=== PATIENT | male | born 1950 | race Caucasian/White ===

== ENCOUNTER 2022-05-30 17:30 | Inpatient (IN) | payer MEDICARE ==
[~2022-05-30] VITALS: Ht 177.8 cm; Wt 113.6 kg
[2022-05-30] MEDS ORDERED: ASPI81CH33 PO (17:47)
[2022-05-30] MEDS ORDERED: TRAZ-257 PO (17:51)
[2022-05-30] MEDS ORDERED: MULT-90 PO (17:51)
[2022-05-30] MEDS ORDERED: VENL75CA2 PO (17:51)
[2022-05-30] MEDS ORDERED: OMEP40CA4 PO (17:51)
[2022-05-30] MEDS ORDERED: FLUT50SP33 NARES (17:51)
[2022-05-30] MEDS ORDERED: ATOR40TA75 PO (17:51)
[2022-05-30] MEDS ORDERED: SUPECAP7 PO (17:51)
[2022-05-30] MEDS ORDERED: BENZ200C70 PO (17:51)
[2022-05-30] MEDS ORDERED: CIDA500T2 PO (17:51)
[2022-05-30] MEDS ORDERED: ALBU2.5V10 INH (17:51)
[2022-05-30 18:12] LABS: BASO % 0.1 % (0.0-1.0); HEMATOCRIT 45.5 % (42.0-52.0); LYMPH # 1.2 10^3/uL (1.5-5.0); LYMPH % 16.5 % (24.0-44.0); MEAN CORPUSCULAR HEMOGLOBIN 31.7 pg (27.0-33.0); MEAN CORPUSCULAR HGB CONC 35.2 g/dl (32.0-36.5); MEAN CORPUSCULAR VOLUME 90.1 fl (80.0-96.0); MONO # 0.5 10^3/uL (0.0-0.8); MONO % 7.4 % (2.0-8.0); NEUTROPHILS # 5.5 10^3/uL (1.5-8.5); NEUTROPHILS % 75.7 % (36.0-66.0); PLATELET COUNT, AUTOMATED 261 10^3/uL (150-450); RED BLOOD COUNT 5.05 10^6/uL (4.30-6.10); WHITE BLOOD COUNT 7.2 10^3/uL (4.0-10.0)
[2022-05-30 18:50] LABS: BLOOD UREA NITROGEN 14 MG/DL (7-18); CALCIUM LEVEL 9.2 MG/DL (8.8-10.2); CARBON DIOXIDE LEVEL 25 MEQ/L (21-32); CHLORIDE LEVEL 109 MEQ/L (98-107); GLOMERULAR FILTRATION RATE > 60.0 (>42); GLUCOSE, FASTING 102 MG/DL (70-100); POTASSIUM SERUM 3.7 MEQ/L (3.5-5.1); SODIUM LEVEL 140 MEQ/L (136-145)
[2022-05-30] MEDS ORDERED: BOOSTRIX/ADACEL VACCINE (DIPHTH/PERTUSS/ACELL/TETANUS) 0.5ML SYR IM.IMMUN ONE (19:05)
[2022-05-30 20:00] LABS: CK-MB VALUE MASS 1.1 NG/ML (<3.6); MB/CK RELATIVE INDEX 0.6 (< OR =4)
[2022-05-30] MEDS ORDERED: ADV500INH INH (20:51)
[2022-05-30] MEDS ORDERED: HOME MED LIST COMPLETE! XX SCH (20:55)
[2022-05-30 21:15] LABS: RSV AMPLIFICATION NEGATIVE (NEGATIVE)
[2022-05-30] MEDS: LR 1,000 ML IV SCH (23:45)
[2022-05-31] VITALS (17 sets, daily range): BP systolic 120–171; BP diastolic 59–86; O2SAT 97
[2022-05-31] MEDS: ATORVASTATIN 20 MG TAB PO SCH ×2 (00:47→22:29)
[2022-05-31] MEDS ORDERED: DEXTROSE 50% 50 ML SYRINGE IV PRN (01:15)
[2022-05-31] MEDS ORDERED: GLUCAGON INJ 1MG VIAL SC PRN (01:15)
[2022-05-31] MEDS ORDERED: GLUCOSE 4GM CHEW TABLET PO PRN (01:15)
[2022-05-31 04:50] LABS: HEMATOCRIT 44.5 % (42.0-52.0); HEMOGLOBIN 15.3 g/dl (13.5-17.5); LYMPH # 1.3 10^3/uL (1.5-5.0); LYMPH % 19.3 % (24.0-44.0); MEAN CORPUSCULAR HEMOGLOBIN 31.1 pg (27.0-33.0); MEAN CORPUSCULAR HGB CONC 34.4 g/dl (32.0-36.5); MEAN CORPUSCULAR VOLUME 90.4 fl (80.0-96.0); MONO # 0.4 10^3/uL (0.0-0.8); MONO % 6.3 % (2.0-8.0); NEUTROPHILS % 74.1 % (36.0-66.0); PLATELET COUNT, AUTOMATED 244 10^3/uL (150-450); RED BLOOD COUNT 4.92 10^6/uL (4.30-6.10); WHITE BLOOD COUNT 6.8 10^3/uL (4.0-10.0)
[2022-05-31 05:22] LABS: BLOOD UREA NITROGEN 12 MG/DL (7-18); CALCIUM LEVEL 8.8 MG/DL (8.8-10.2); CARBON DIOXIDE LEVEL 29 MEQ/L (21-32); CHLORIDE LEVEL 111 MEQ/L (98-107); CREATININE FOR GFR 0.87 MG/DL (0.70-1.30); GLOMERULAR FILTRATION RATE > 60.0 (>42); GLUCOSE, FASTING 110 MG/DL (70-100); POTASSIUM SERUM 3.6 MEQ/L (3.5-5.1); SODIUM LEVEL 143 MEQ/L (136-145)
[2022-05-31] MEDS: ADVAIR HFA 230/21MCG INHALER INH SCH ×2 (07:26→19:32)
[2022-05-31] MEDS ORDERED: OMEPRAZOLE 20MG CAP PO SCH (09:00)
[2022-05-31] MEDS: LR 1,000 ML IV SCH (12:08)
[2022-05-31] MEDS ORDERED: LIDOCAINE 1% SDV 30ML VIAL As Ordered ONE (13:52)
[2022-05-31] MEDS ORDERED: BACITRACIN OINTMENT 30GM TUBE As Ordered ONE (13:52)
[2022-05-31] MEDS ORDERED: ISOVUE-300 61% 50ML VIAL As Ordered ONE (13:53)
[2022-05-31] MEDS ORDERED: ceFAZolin SOD 2 GM in IV 1 EA IV ONE (14:00)
[2022-05-31] MEDS ORDERED: propofoL 200 MG/20 ML VIAL As Ordered ONE ×4 (17:36→19:50)
[2022-05-31] MEDS ORDERED: LIDOCAINE 2% 100MG/5ML SDV (FOR ANES.) As Ordered ONE (17:36)
[2022-05-31] MEDS ORDERED: MIDAZOLAM INJ 2MG/2ML VIAL (J2250 PER 1MG) As Ordered ONE (17:36)
[2022-05-31] MEDS ORDERED: fentaNYL 100 MCG/2 ML INJECTION As Ordered ONE (17:36)
[2022-05-31] MEDS ORDERED: ONDANSETRON 4MG 2ML VIAL As Ordered ONE (17:37)
[2022-05-31] MEDS ORDERED: ACETAMINOPHEN 1000MG 100ML IV BTL (OFIRMEV) (J0131 PER 10MG) As Ordered ONE (17:51)
[2022-05-31] MEDS ORDERED: ceFAZolin 2 GM/D5W 50 ML IV BAG (J0690 PER 500MG) As Ordered ONE (18:20)
[2022-05-31] MEDS ORDERED: LR 1,000 ML IV SCH (20:15)
[2022-05-31] MEDS ORDERED: fentaNYL 100 MCG/2 ML INJECTION IV PRN (20:15)
[2022-05-31] MEDS ORDERED: ONDANSETRON 4MG 2ML VIAL IV PRN (20:15)
[2022-05-31] MEDS ORDERED: oxyCODONE 5MG TAB PO PRN (20:15)
[2022-06-01] VITALS (38 sets, daily range): BP systolic 125–171; BP diastolic 66–107; O2SAT 95–97
[2022-06-01] MEDS ORDERED: MORPHINE 2 MG/ML 1ML VIAL IV ONE (02:00)
[2022-06-01] MEDS ORDERED: ALBUTEROL SULFATE 2.5 MG/0.5 ML INH NEB SOLN INH PRN (03:00)
[2022-06-01] MEDS: ALBUTEROL SULFATE 2.5 MG/0.5 ML INH NEB SOLN INH PRN (03:17)
[2022-06-01 05:44] LABS: HEMATOCRIT 44.9 % (42.0-52.0); HEMOGLOBIN 15.5 g/dl (13.5-17.5); MEAN CORPUSCULAR HEMOGLOBIN 31.6 pg (27.0-33.0); MEAN CORPUSCULAR HGB CONC 34.5 g/dl (32.0-36.5); MEAN CORPUSCULAR VOLUME 91.4 fl (80.0-96.0); PLATELET COUNT, AUTOMATED 231 10^3/uL (150-450); RED BLOOD COUNT 4.91 10^6/uL (4.30-6.10); WHITE BLOOD COUNT 9.7 10^3/uL (4.0-10.0)
[2022-06-01 06:28] LABS: ALBUMIN 3.6 GM/DL (3.2-5.2); ALT/SGPT 24 U/L (12-78); BILIRUBIN,TOTAL 0.8 MG/DL (0.2-1.0); BLOOD UREA NITROGEN 13 MG/DL (7-18); CALCIUM LEVEL 8.8 MG/DL (8.8-10.2); CARBON DIOXIDE LEVEL 27 MEQ/L (21-32); CHLORIDE LEVEL 108 MEQ/L (98-107); CREATININE FOR GFR 1.03 MG/DL (0.70-1.30); GLOMERULAR FILTRATION RATE > 60.0 (>42); GLUCOSE, FASTING 108 MG/DL (70-100); POTASSIUM SERUM 3.7 MEQ/L (3.5-5.1); SODIUM LEVEL 143 MEQ/L (136-145); TOTAL PROTEIN 6.2 GM/DL (6.4-8.2)
[2022-06-01] MEDS: ADVAIR HFA 230/21MCG INHALER INH SCH ×2 (07:52→19:19)
[2022-06-01] MEDS: ONDANSETRON 4MG 2ML VIAL IV PRN (08:00)
[2022-06-01] MEDS ORDERED: traMADol 50 MG TAB PO ONE (09:30)
[2022-06-01] MEDS: ASCORBIC ACID 250 MG TAB PO SCH ×2 (09:44→21:09)
[2022-06-01] MEDS: OMEPRAZOLE 20MG CAP PO SCH (09:44)
[2022-06-01] MEDS ORDERED: MIDAZOLAM INJ 2MG/2ML VIAL (J2250 PER 1MG) IV STA ×2 (10:40→12:00)
[2022-06-01] MEDS ORDERED: LIDOCAINE 1% MDV 20ML VIAL SC ONE (10:40)
[2022-06-01] MEDS ORDERED: flumazeniL 0.5 MG/5 ML VIAL As Ordered ONE (11:13)
[2022-06-01] MEDS: ACETAMINOPHEN TAB 650MG DOSE (2X325MG) PO PRN (14:35)
[2022-06-01] MEDS: MOM 30ML SUSPENSION UDC PO SCH (17:55)
[2022-06-01] MEDS: NORCO, ANEXSIA 5/325MG TABLET (HYDROcodone/ACETAMINOPHEN) PO PRN (18:37)
[2022-06-01] MEDS: PERCOCET 5MG/325MG TAB PO PRN (19:50)
[2022-06-01] MEDS: SENOKOT S TAB PO SCH (21:09)
[2022-06-01] MEDS: ATORVASTATIN 20 MG TAB PO SCH (21:09)
[2022-06-02] VITALS (20 sets, daily range): BP systolic 121–167; BP diastolic 71–88
[2022-06-02] MEDS: PERCOCET 5MG/325MG TAB PO PRN ×3 (02:21→16:55)
[2022-06-02] MEDS: ALBUTEROL SULFATE 2.5 MG/0.5 ML INH NEB SOLN INH PRN (02:42)
[2022-06-02] MEDS ORDERED: MORPHINE 2 MG/ML 1ML VIAL IV ONE (02:50)
[2022-06-02] MEDS: ADVAIR HFA 230/21MCG INHALER INH SCH ×2 (07:23→20:02)
[2022-06-02 07:27] LABS: HEMATOCRIT 44.1 % (42.0-52.0); HEMOGLOBIN 14.8 g/dl (13.5-17.5); MEAN CORPUSCULAR HEMOGLOBIN 31.1 pg (27.0-33.0); MEAN CORPUSCULAR HGB CONC 33.6 g/dl (32.0-36.5); MEAN CORPUSCULAR VOLUME 92.6 fl (80.0-96.0); PLATELET COUNT, AUTOMATED 245 10^3/uL (150-450); RED BLOOD COUNT 4.76 10^6/uL (4.30-6.10); WHITE BLOOD COUNT 8.5 10^3/uL (4.0-10.0)
[2022-06-02 07:58] LABS: ALBUMIN 3.5 GM/DL (3.2-5.2); ALT/SGPT 19 U/L (12-78); BILIRUBIN,TOTAL 1.2 MG/DL (0.2-1.0); BLOOD UREA NITROGEN 13 MG/DL (7-18); CALCIUM LEVEL 9.1 MG/DL (8.8-10.2); CARBON DIOXIDE LEVEL 28 MEQ/L (21-32); CHLORIDE LEVEL 105 MEQ/L (98-107); GLOMERULAR FILTRATION RATE > 60.0 (>42); GLUCOSE, FASTING 102 MG/DL (70-100); POTASSIUM SERUM 3.5 MEQ/L (3.5-5.1); SODIUM LEVEL 138 MEQ/L (136-145); TOTAL PROTEIN 6.7 GM/DL (6.4-8.2)
[2022-06-02] MEDS: ASCORBIC ACID 250 MG TAB PO SCH ×2 (08:13→21:06)
[2022-06-02] MEDS: SENOKOT S TAB PO SCH ×2 (08:13→21:05)
[2022-06-02] MEDS: OMEPRAZOLE 20MG CAP PO SCH (08:13)
[2022-06-02] MEDS: MOM 30ML SUSPENSION UDC PO SCH (08:13)
[2022-06-02] MEDS: NORCO, ANEXSIA 5/325MG TABLET (HYDROcodone/ACETAMINOPHEN) PO PRN ×3 (12:55→22:51)
[2022-06-02] MEDS: HEPARIN SOD (PORCINE) 5000UNITS/ML 1ML VIAL/SYRINGE SQ SCH ×2 (14:05→21:06)
[2022-06-02] MEDS: ACETAMINOPHEN TAB 650MG DOSE (2X325MG) PO PRN (21:05)
[2022-06-02] MEDS: ATORVASTATIN 20 MG TAB PO SCH (21:05)
[2022-06-03] VITALS (27 sets, daily range): BP systolic 115–162; BP diastolic 64–83; O2SAT 89–97
[2022-06-03] MEDS: PERCOCET 5MG/325MG TAB PO PRN ×2 (00:45→12:35)
[2022-06-03] MEDS: HEPARIN SOD (PORCINE) 5000UNITS/ML 1ML VIAL/SYRINGE SQ SCH ×3 (06:06→22:24)
[2022-06-03 06:08] LABS: HEMATOCRIT 44.8 % (42.0-52.0); HEMOGLOBIN 15.3 g/dl (13.5-17.5); MEAN CORPUSCULAR HEMOGLOBIN 31.1 pg (27.0-33.0); MEAN CORPUSCULAR HGB CONC 34.2 g/dl (32.0-36.5); MEAN CORPUSCULAR VOLUME 91.1 fl (80.0-96.0); PLATELET COUNT, AUTOMATED 252 10^3/uL (150-450); RED BLOOD COUNT 4.92 10^6/uL (4.30-6.10)
[2022-06-03 06:40] LABS: ALBUMIN 3.3 GM/DL (3.2-5.2); ALT/SGPT 16 U/L (12-78); BILIRUBIN,TOTAL 0.8 MG/DL (0.2-1.0); BLOOD UREA NITROGEN 16 MG/DL (7-18); CALCIUM LEVEL 8.7 MG/DL (8.8-10.2); CARBON DIOXIDE LEVEL 27 MEQ/L (21-32); CHLORIDE LEVEL 106 MEQ/L (98-107); CREATININE FOR GFR 0.86 MG/DL (0.70-1.30); GLOMERULAR FILTRATION RATE > 60.0 (>42); GLUCOSE, FASTING 108 MG/DL (70-100); POTASSIUM SERUM 3.9 MEQ/L (3.5-5.1); SODIUM LEVEL 139 MEQ/L (136-145); TOTAL PROTEIN 6.1 GM/DL (6.4-8.2)
[2022-06-03] MEDS: ADVAIR HFA 230/21MCG INHALER INH SCH ×2 (07:38→19:38)
[2022-06-03] MEDS: MOM 30ML SUSPENSION UDC PO SCH (08:30)
[2022-06-03] MEDS: ONDANSETRON 4MG 2ML VIAL IV PRN (08:30)
[2022-06-03] MEDS: MIRALAX *UNIT DOSE* 17GM PACKET PO SCH ×2 (08:30→20:27)
[2022-06-03] MEDS: OMEPRAZOLE 20MG CAP PO SCH (08:31)
[2022-06-03] MEDS: SENOKOT S TAB PO SCH ×2 (08:31→20:25)
[2022-06-03] MEDS: ASCORBIC ACID 250 MG TAB PO SCH ×2 (08:31→20:24)
[2022-06-03] MEDS: NORCO, ANEXSIA 5/325MG TABLET (HYDROcodone/ACETAMINOPHEN) PO PRN (08:32)
[2022-06-03] MEDS: ALBUTEROL SULFATE 2.5 MG/0.5 ML INH NEB SOLN INH PRN (13:45)
[2022-06-03] MEDS: NORCO, ANEXSIA 5/325MG TABLET (HYDROcodone/ACETAMINOPHEN) PO SCH (20:24)
[2022-06-03] MEDS: ATORVASTATIN 20 MG TAB PO SCH (20:24)
[2022-06-04 03:36] VITALS: BP 153/77
[2022-06-04] MEDS: PERCOCET 5MG/325MG TAB PO PRN ×2 (04:43→17:42)
[2022-06-04 05:54] LABS: HEMATOCRIT 43.9 % (42.0-52.0); HEMOGLOBIN 15.1 g/dl (13.5-17.5); MEAN CORPUSCULAR HEMOGLOBIN 31.3 pg (27.0-33.0); MEAN CORPUSCULAR HGB CONC 34.4 g/dl (32.0-36.5); MEAN CORPUSCULAR VOLUME 91.1 fl (80.0-96.0); PLATELET COUNT, AUTOMATED 252 10^3/uL (150-450); RED BLOOD COUNT 4.82 10^6/uL (4.30-6.10); WHITE BLOOD COUNT 6.9 10^3/uL (4.0-10.0)
[2022-06-04] MEDS: HEPARIN SOD (PORCINE) 5000UNITS/ML 1ML VIAL/SYRINGE SQ SCH ×3 (05:57→21:00)
[2022-06-04 06:32] LABS: ALBUMIN 3.3 GM/DL (3.2-5.2); ALT/SGPT 20 U/L (12-78); BILIRUBIN,TOTAL 0.8 MG/DL (0.2-1.0); BLOOD UREA NITROGEN 16 MG/DL (7-18); CALCIUM LEVEL 8.9 MG/DL (8.8-10.2); CARBON DIOXIDE LEVEL 28 MEQ/L (21-32); CHLORIDE LEVEL 105 MEQ/L (98-107); CREATININE FOR GFR 0.96 MG/DL (0.70-1.30); GLOMERULAR FILTRATION RATE > 60.0 (>42); GLUCOSE, FASTING 116 MG/DL (70-100); POTASSIUM SERUM 3.8 MEQ/L (3.5-5.1); SODIUM LEVEL 139 MEQ/L (136-145)
[2022-06-04] MEDS: ADVAIR HFA 230/21MCG INHALER INH SCH ×2 (07:39→20:33)
[2022-06-04 07:45] VITALS: BP 136/80
[2022-06-04] MEDS: NORCO, ANEXSIA 5/325MG TABLET (HYDROcodone/ACETAMINOPHEN) PO SCH ×2 (08:56→21:00)
[2022-06-04] MEDS: ASCORBIC ACID 250 MG TAB PO SCH ×2 (08:56→20:59)
[2022-06-04] MEDS: SENOKOT S TAB PO SCH ×2 (08:56→20:59)
[2022-06-04] MEDS: MOM 30ML SUSPENSION UDC PO SCH (08:57)
[2022-06-04] MEDS: MIRALAX *UNIT DOSE* 17GM PACKET PO SCH ×2 (08:57→21:00)
[2022-06-04] MEDS: OMEPRAZOLE 20MG CAP PO SCH (08:57)
[2022-06-04 12:00] VITALS: BP 130/66
[2022-06-04] MEDS: ALBUTEROL SULFATE 2.5 MG/0.5 ML INH NEB SOLN INH PRN (15:11)
[2022-06-04 20:08] VITALS: BP 139/65
[2022-06-04] MEDS: ATORVASTATIN 20 MG TAB PO SCH (20:59)
[2022-06-04 23:57] VITALS: BP 145/79
[2022-06-05] VITALS (26 sets, daily range): BP systolic 134–180; BP diastolic 63–98; O2SAT 90–97
[2022-06-05] MEDS: PERCOCET 5MG/325MG TAB PO PRN ×2 (04:11→15:50)
[2022-06-05 04:12] LABS: HEMATOCRIT 46.4 % (42.0-52.0); HEMOGLOBIN 15.5 g/dl (13.5-17.5); MEAN CORPUSCULAR HEMOGLOBIN 31.3 pg (27.0-33.0); MEAN CORPUSCULAR HGB CONC 33.4 g/dl (32.0-36.5); MEAN CORPUSCULAR VOLUME 93.5 fl (80.0-96.0); PLATELET COUNT, AUTOMATED 235 10^3/uL (150-450); RED BLOOD COUNT 4.96 10^6/uL (4.30-6.10); WHITE BLOOD COUNT 6.1 10^3/uL (4.0-10.0)
[2022-06-05 04:55] LABS: ALBUMIN 3.2 GM/DL (3.2-5.2); ALT/SGPT 22 U/L (12-78); BILIRUBIN,TOTAL 0.7 MG/DL (0.2-1.0); BLOOD UREA NITROGEN 15 MG/DL (7-18); CALCIUM LEVEL 9.1 MG/DL (8.8-10.2); CARBON DIOXIDE LEVEL 28 MEQ/L (21-32); CHLORIDE LEVEL 105 MEQ/L (98-107); CREATININE FOR GFR 0.93 MG/DL (0.70-1.30); GLOMERULAR FILTRATION RATE > 60.0 (>42); GLUCOSE, FASTING 105 MG/DL (70-100); POTASSIUM SERUM 4.2 MEQ/L (3.5-5.1); SODIUM LEVEL 137 MEQ/L (136-145)
[2022-06-05] MEDS: HEPARIN SOD (PORCINE) 5000UNITS/ML 1ML VIAL/SYRINGE SQ SCH ×3 (05:54→21:03)
[2022-06-05] MEDS: ASCORBIC ACID 250 MG TAB PO SCH ×2 (08:48→20:58)
[2022-06-05] MEDS: SENOKOT S TAB PO SCH ×2 (08:48→20:58)
[2022-06-05] MEDS: MIRALAX *UNIT DOSE* 17GM PACKET PO SCH ×2 (08:49→20:58)
[2022-06-05] MEDS: OMEPRAZOLE 20MG CAP PO SCH (08:49)
[2022-06-05] MEDS: MOM 30ML SUSPENSION UDC PO SCH (08:49)
[2022-06-05] MEDS: NORCO, ANEXSIA 5/325MG TABLET (HYDROcodone/ACETAMINOPHEN) PO SCH ×2 (08:50→20:57)
[2022-06-05] MEDS: ADVAIR HFA 230/21MCG INHALER INH SCH ×2 (10:52→19:46)
[2022-06-05] MEDS: ATORVASTATIN 20 MG TAB PO SCH (20:57)
[2022-06-05] MEDS: ACETAMINOPHEN TAB 650MG DOSE (2X325MG) PO PRN (22:02)
[2022-06-05] MEDS ORDERED: NS 1,000 ML IV ONE (22:15)
[2022-06-05 22:48] LABS: APPEARANCE, URINE MANUAL CLEAR (CLEAR); COLOR, URINE MANUAL YELLOW (YELLOW); SPECIFIC GRAVITY,URINE MANUAL 1.005 (1.002-1.035)
[2022-06-05 22:49] LABS: BILIRUBIN, URINE MANUAL NEGATIVE (NEGATIVE); BLOOD URINE MANUAL NEGATIVE (NEGATIVE); GLUCOSE, URINE (UA) MANUAL NEGATIVE (NEGATIVE); KETONE, URINE MANUAL NEGATIVE (NEGATIVE); LEUKOCYTE ESTERASE, URINE MAN NEGATIVE (NEGATIVE); NITRITE, URINE MANUAL NEGATIVE (NEGATIVE); PROTEIN, URINE MANUAL NEGATIVE (NEGATIVE); UROBILINOGEN, URINE MANUAL NORMAL (NORMAL)
[2022-06-05 23:20] LABS: HEMOGLOBIN 15.6 g/dl (13.5-17.5); LYMPH # 0.4 10^3/uL (1.5-5.0); LYMPH % 5.8 % (24.0-44.0); MEAN CORPUSCULAR HEMOGLOBIN 30.8 pg (27.0-33.0); MEAN CORPUSCULAR HGB CONC 33.9 g/dl (32.0-36.5); MEAN CORPUSCULAR VOLUME 90.9 fl (80.0-96.0); MONO # 0.4 10^3/uL (0.0-0.8); NEUTROPHILS # 6.8 10^3/uL (1.5-8.5); NEUTROPHILS % 88.9 % (36.0-66.0); PLATELET COUNT, AUTOMATED 232 10^3/uL (150-450); RED BLOOD COUNT 5.06 10^6/uL (4.30-6.10); WHITE BLOOD COUNT 7.7 10^3/uL (4.0-10.0)
[2022-06-05] MEDS: PIPERACILLIN/TAZOBACTAM SOD 3.375 GM in D5W MINI-BAG PLUS 50 ML IV SCH (23:31)
[2022-06-05] MEDS: NS 1,000 ML IV SCH (23:42)
[2022-06-06] VITALS (19 sets, daily range): BP systolic 139–175; BP diastolic 68–89; O2SAT 94–98
[2022-06-06 00:11] LABS: BLOOD UREA NITROGEN 16 MG/DL (7-18); CALCIUM LEVEL 8.7 MG/DL (8.8-10.2); CARBON DIOXIDE LEVEL 27 MEQ/L (21-32); CHLORIDE LEVEL 106 MEQ/L (98-107); CREATININE FOR GFR 1.12 MG/DL (0.70-1.30); GLOMERULAR FILTRATION RATE > 60.0 (>42); GLUCOSE, FASTING 131 MG/DL (70-100); MAGNESIUM LEVEL 2.3 MG/DL (1.8-2.4); NT-PRO BNP 38 PG/ML (<125); POTASSIUM SERUM 4.2 MEQ/L (3.5-5.1); SODIUM LEVEL 139 MEQ/L (136-145)
[2022-06-06] MEDS ORDERED: KETOROLAC 30 MG/ML 1ML VIAL IV ONE (01:00)
[2022-06-06] MEDS ORDERED: VANCOMYCIN HCL 1,000 MG, VIAL MATE ADAPTER 1 EACH in NS 250 ML IV ONE ×4 (01:00)
[2022-06-06] MEDS ORDERED: ISOVUE-370 76% 100ML VIAL As Ordered ONE (01:04)
[2022-06-06] MEDS: ACETAMINOPHEN TAB 650MG DOSE (2X325MG) PO PRN (02:18)
[2022-06-06] MEDS: HEPARIN SOD (PORCINE) 5000UNITS/ML 1ML VIAL/SYRINGE SQ SCH ×2 (05:31→14:10)
[2022-06-06] MEDS: PIPERACILLIN/TAZOBACTAM SOD 3.375 GM in D5W MINI-BAG PLUS 50 ML IV SCH ×3 (05:31→17:21)
[2022-06-06] MEDS: ADVAIR HFA 230/21MCG INHALER INH SCH ×2 (07:50→19:49)
[2022-06-06 08:26] LABS: BLOOD UREA NITROGEN 15 MG/DL (7-18); CARBON DIOXIDE LEVEL 25 MEQ/L (21-32); CHLORIDE LEVEL 105 MEQ/L (98-107); CREATININE FOR GFR 1.08 MG/DL (0.70-1.30); GLOMERULAR FILTRATION RATE > 60.0 (>42); GLUCOSE, FASTING 116 MG/DL (70-100); POTASSIUM SERUM 4.2 MEQ/L (3.5-5.1); SODIUM LEVEL 135 MEQ/L (136-145)
[2022-06-06] MEDS: MOM 30ML SUSPENSION UDC PO SCH (08:35)
[2022-06-06] MEDS: ASCORBIC ACID 250 MG TAB PO SCH ×2 (08:35→22:08)
[2022-06-06] MEDS: MIRALAX *UNIT DOSE* 17GM PACKET PO SCH ×2 (08:35→22:08)
[2022-06-06] MEDS: SENOKOT S TAB PO SCH ×2 (08:36→22:09)
[2022-06-06] MEDS: NORCO, ANEXSIA 5/325MG TABLET (HYDROcodone/ACETAMINOPHEN) PO SCH ×2 (08:36→22:08)
[2022-06-06] MEDS: OMEPRAZOLE 20MG CAP PO SCH (08:36)
[2022-06-06] MEDS: NS 1,000 ML IV SCH ×2 (09:57→20:24)
[2022-06-06] MEDS: VANCOMYCIN HCL 1,000 MG, VIAL MATE ADAPTER 1 EACH in NS 250 ML IV SCH ×2 (09:58→22:09)
[2022-06-06] MEDS: ALBUTEROL SULFATE 2.5 MG/0.5 ML INH NEB SOLN INH PRN (13:50)
[2022-06-06] MEDS: ATORVASTATIN 20 MG TAB PO SCH (22:07)
[2022-06-07] VITALS (7 sets, daily range): BP systolic 127–173; BP diastolic 63–84; O2SAT 97
[2022-06-07] MEDS: PIPERACILLIN/TAZOBACTAM SOD 3.375 GM in D5W MINI-BAG PLUS 50 ML IV SCH ×5 (00:06→23:09)
[2022-06-07] MEDS: NS 1,000 ML IV SCH (05:42)
[2022-06-07 06:21] LABS: BASO % 0.3 % (0.0-1.0); HEMATOCRIT 38.4 % (42.0-52.0); LYMPH # 0.8 10^3/uL (1.5-5.0); LYMPH % 19.3 % (24.0-44.0); MEAN CORPUSCULAR HEMOGLOBIN 31.6 pg (27.0-33.0); MEAN CORPUSCULAR HGB CONC 35.4 g/dl (32.0-36.5); MEAN CORPUSCULAR VOLUME 89.1 fl (80.0-96.0); MONO # 0.4 10^3/uL (0.0-0.8); MONO % 11.2 % (2.0-8.0); NEUTROPHILS # 2.7 10^3/uL (1.5-8.5); NEUTROPHILS % 68.2 % (36.0-66.0); PLATELET COUNT, AUTOMATED 177 10^3/uL (150-450); RED BLOOD COUNT 4.31 10^6/uL (4.30-6.10); WHITE BLOOD COUNT 3.9 10^3/uL (4.0-10.0)
[2022-06-07 06:31] LABS: HEMOGLOBIN 13.6 g/dl (13.5-17.5)
[2022-06-07] MEDS: HEPARIN SOD (PORCINE) 5000UNITS/ML 1ML VIAL/SYRINGE SQ SCH (06:47)
[2022-06-07 07:07] LABS: BLOOD UREA NITROGEN 10 MG/DL (7-18); C REACTIVE PROTEIN QUANTITATIV 8.97 MG/DL (0.00-0.30); CALCIUM LEVEL 8.2 MG/DL (8.8-10.2); CARBON DIOXIDE LEVEL 24 MEQ/L (21-32); CHLORIDE LEVEL 110 MEQ/L (98-107); CREATININE FOR GFR 0.88 MG/DL (0.70-1.30); GLOMERULAR FILTRATION RATE > 60.0 (>42); GLUCOSE, FASTING 102 MG/DL (70-100); POTASSIUM SERUM 3.9 MEQ/L (3.5-5.1); SODIUM LEVEL 138 MEQ/L (136-145)
[2022-06-07] MEDS: ADVAIR HFA 230/21MCG INHALER INH SCH ×2 (08:14→20:00)
[2022-06-07] MEDS: MOM 30ML SUSPENSION UDC PO SCH (09:00)
[2022-06-07] MEDS: MIRALAX *UNIT DOSE* 17GM PACKET PO SCH ×2 (09:00→21:00)
[2022-06-07] MEDS: SENOKOT S TAB PO SCH ×2 (09:00→21:00)
[2022-06-07] MEDS: ASCORBIC ACID 250 MG TAB PO SCH ×2 (09:13→21:15)
[2022-06-07] MEDS: OMEPRAZOLE 20MG CAP PO SCH (09:14)
[2022-06-07] MEDS: VANCOMYCIN HCL 1,000 MG, VIAL MATE ADAPTER 1 EACH in NS 250 ML IV SCH ×2 (10:28→21:15)
[2022-06-07] MEDS ORDERED: ENOXAPARIN 40MG/0.4ML SYRINGE (J1650 PER 10MG) SC ONE (14:00)
[2022-06-07] MEDS ORDERED: guaiFENesin SYRUP 200MG 10ML UDC PO PRN (15:25)
[2022-06-07] MEDS: ATORVASTATIN 20 MG TAB PO SCH (21:15)
[2022-06-08] VITALS (20 sets, daily range): BP systolic 122–145; BP diastolic 66–82; O2SAT 95–99
[2022-06-08] MEDS: PIPERACILLIN/TAZOBACTAM SOD 3.375 GM in D5W MINI-BAG PLUS 50 ML IV SCH (04:54)
[2022-06-08] MEDS: ALBUTEROL SULFATE 2.5 MG/0.5 ML INH NEB SOLN INH PRN ×2 (05:04→13:09)
[2022-06-08 05:21] LABS: BASO % 0.2 % (0.0-1.0); HEMATOCRIT 41.8 % (42.0-52.0); HEMOGLOBIN 14.2 g/dl (13.5-17.5); LYMPH % 20.2 % (24.0-44.0); MEAN CORPUSCULAR HEMOGLOBIN 30.7 pg (27.0-33.0); MEAN CORPUSCULAR VOLUME 90.5 fl (80.0-96.0); MONO # 0.5 10^3/uL (0.0-0.8); MONO % 10.5 % (2.0-8.0); NEUTROPHILS # 3.5 10^3/uL (1.5-8.5); NEUTROPHILS % 68.5 % (36.0-66.0); PLATELET COUNT, AUTOMATED 186 10^3/uL (150-450); RED BLOOD COUNT 4.62 10^6/uL (4.30-6.10); WHITE BLOOD COUNT 5.2 10^3/uL (4.0-10.0)
[2022-06-08 05:59] LABS: BLOOD UREA NITROGEN 11 MG/DL (7-18); CALCIUM LEVEL 8.2 MG/DL (8.8-10.2); CARBON DIOXIDE LEVEL 24 MEQ/L (21-32); CHLORIDE LEVEL 110 MEQ/L (98-107); CREATININE FOR GFR 0.92 MG/DL (0.70-1.30); GLOMERULAR FILTRATION RATE > 60.0 (>42); GLUCOSE, FASTING 99 MG/DL (70-100); SODIUM LEVEL 140 MEQ/L (136-145)
[2022-06-08] MEDS: ADVAIR HFA 230/21MCG INHALER INH SCH ×2 (07:08→19:17)
[2022-06-08] MEDS: MIRALAX *UNIT DOSE* 17GM PACKET PO SCH ×2 (09:00→21:00)
[2022-06-08] MEDS: SENOKOT S TAB PO SCH ×2 (09:00→21:00)
[2022-06-08] MEDS: MOM 30ML SUSPENSION UDC PO SCH (09:00)
[2022-06-08] MEDS: OMEPRAZOLE 20MG CAP PO SCH (09:51)
[2022-06-08] MEDS: ASCORBIC ACID 250 MG TAB PO SCH ×2 (09:51→22:47)
[2022-06-08] MEDS: VANCOMYCIN HCL 750 MG, VIAL MATE ADAPTER 1 EACH in D5W 250 ML IV SCH ×2 (10:28→22:48)
[2022-06-08] MEDS: VANCOMYCIN HCL 500 MG in D5W MINI-BAG PLUS 100 ML IV SCH ×2 (11:40→22:48)
[2022-06-08] MEDS: ATORVASTATIN 20 MG TAB PO SCH (22:47)
[2022-06-09] VITALS (21 sets, daily range): BP systolic 120–128; BP diastolic 64–74; O2SAT 85–100
[2022-06-09 04:14] LABS: BASO % 0.2 % (0.0-1.0); HEMOGLOBIN 14.1 g/dl (13.5-17.5); LYMPH # 1.3 10^3/uL (1.5-5.0); LYMPH % 23.6 % (24.0-44.0); MEAN CORPUSCULAR HEMOGLOBIN 31.1 pg (27.0-33.0); MEAN CORPUSCULAR HGB CONC 34.4 g/dl (32.0-36.5); MEAN CORPUSCULAR VOLUME 90.5 fl (80.0-96.0); MONO # 0.6 10^3/uL (0.0-0.8); MONO % 10.5 % (2.0-8.0); NEUTROPHILS # 3.6 10^3/uL (1.5-8.5); NEUTROPHILS % 64.8 % (36.0-66.0); PLATELET COUNT, AUTOMATED 232 10^3/uL (150-450); RED BLOOD COUNT 4.53 10^6/uL (4.30-6.10); WHITE BLOOD COUNT 5.6 10^3/uL (4.0-10.0)
[2022-06-09 04:41] LABS: BLOOD UREA NITROGEN 10 MG/DL (7-18); CALCIUM LEVEL 8.5 MG/DL (8.8-10.2); CARBON DIOXIDE LEVEL 24 MEQ/L (21-32); CHLORIDE LEVEL 110 MEQ/L (98-107); CREATININE FOR GFR 0.77 MG/DL (0.70-1.30); GLOMERULAR FILTRATION RATE > 60.0 (>42); GLUCOSE, FASTING 96 MG/DL (70-100); POTASSIUM SERUM 3.7 MEQ/L (3.5-5.1); SODIUM LEVEL 141 MEQ/L (136-145)
[2022-06-09] MEDS: ADVAIR HFA 230/21MCG INHALER INH SCH ×2 (07:50→19:30)
[2022-06-09] MEDS: MOM 30ML SUSPENSION UDC PO SCH (09:00)
[2022-06-09] MEDS: SENOKOT S TAB PO SCH ×2 (09:00→21:06)
[2022-06-09] MEDS: MIRALAX *UNIT DOSE* 17GM PACKET PO SCH ×2 (09:00→21:07)
[2022-06-09] MEDS: ASCORBIC ACID 250 MG TAB PO SCH ×2 (09:03→21:06)
[2022-06-09] MEDS: OMEPRAZOLE 20MG CAP PO SCH (09:03)
[2022-06-09] MEDS ORDERED: DOXY-350 PO (09:58)
[2022-06-09] MEDS: VANCOMYCIN HCL 750 MG, VIAL MATE ADAPTER 1 EACH in D5W 250 ML IV SCH ×2 (10:09→22:23)
[2022-06-09] MEDS: VANCOMYCIN HCL 500 MG in D5W MINI-BAG PLUS 100 ML IV SCH ×2 (11:30→22:23)
[2022-06-09] MEDS: NORCO, ANEXSIA 5/325MG TABLET (HYDROcodone/ACETAMINOPHEN) PO PRN (12:45)
[2022-06-09] MEDS: ATORVASTATIN 20 MG TAB PO SCH (21:06)
[2022-06-10] VITALS (10 sets, daily range): BP systolic 128–130; BP diastolic 64–76; O2SAT 94–100
[2022-06-10] MEDS: ADVAIR HFA 230/21MCG INHALER INH SCH (07:43)
[2022-06-10] MEDS: NORCO, ANEXSIA 5/325MG TABLET (HYDROcodone/ACETAMINOPHEN) PO PRN (07:53)
[2022-06-10] MEDS: MOM 30ML SUSPENSION UDC PO SCH (08:29)
[2022-06-10] MEDS: SENOKOT S TAB PO SCH (08:29)
[2022-06-10] MEDS: MIRALAX *UNIT DOSE* 17GM PACKET PO SCH (08:29)
[2022-06-10] MEDS: ASCORBIC ACID 250 MG TAB PO SCH (08:33)
[2022-06-10] MEDS: OMEPRAZOLE 20MG CAP PO SCH (08:33)
[2022-06-10 09:25] LABS: BASO % 0.1 % (0.0-1.0); HEMATOCRIT 42.3 % (42.0-52.0); HEMOGLOBIN 14.5 g/dl (13.5-17.5); LYMPH # 1.7 10^3/uL (1.5-5.0); LYMPH % 23.4 % (24.0-44.0); MEAN CORPUSCULAR HGB CONC 34.3 g/dl (32.0-36.5); MEAN CORPUSCULAR VOLUME 90.6 fl (80.0-96.0); MONO # 0.5 10^3/uL (0.0-0.8); MONO % 7.1 % (2.0-8.0); NEUTROPHILS # 4.9 10^3/uL (1.5-8.5); NEUTROPHILS % 68.8 % (36.0-66.0); PLATELET COUNT, AUTOMATED 249 10^3/uL (150-450); RED BLOOD COUNT 4.67 10^6/uL (4.30-6.10); WHITE BLOOD COUNT 7.1 10^3/uL (4.0-10.0)
[2022-06-10 09:58] LABS: BLOOD UREA NITROGEN 12 MG/DL (7-18); CARBON DIOXIDE LEVEL 26 MEQ/L (21-32); CHLORIDE LEVEL 108 MEQ/L (98-107); CREATININE FOR GFR 0.88 MG/DL (0.70-1.30); GLOMERULAR FILTRATION RATE > 60.0 (>42); GLUCOSE, FASTING 135 MG/DL (70-100); POTASSIUM SERUM 3.9 MEQ/L (3.5-5.1); SODIUM LEVEL 141 MEQ/L (136-145)
== END 2022-06-10 13:36 | disposition home or self-care (01) | DRG 243 ==
LOC: M ED 17:30 → EDBD 17:30 → M ED INP 21:45 → M ICU 05-31 00:31 → M PCU 06-02 17:40
PROVIDERS: ADMIT Family Medicine; ATTEND Internal Medicine
PROC: 02HK3JZ Insertion of Pacemaker Lead into Right Ventricle, Percutaneous Approach (ICD-10-PCS; 2022-05-31)
PROC: 02H63JZ Insertion of Pacemaker Lead into Right Atrium, Percutaneous Approach (ICD-10-PCS; 2022-05-31)
PROC: 0JH606Z Insertion of Pacemaker, Dual Chamber into Chest Subcutaneous Tissue and Fascia, Open Approach (ICD-10-PCS; principal; 2022-05-31 17:30)
PROC: 0W9B30Z Drainage of Left Pleural Cavity with Drainage Device, Percutaneous Approach (ICD-10-PCS; 2022-06-01)
DX: I49.5 Sick sinus syndrome (principal); J95.811 Postprocedural pneumothorax; R55 Syncope and collapse; J45.909 Unspecified asthma, uncomplicated; G47.33 Obstructive sleep apnea (adult) (pediatric); E78.5 Hyperlipidemia, unspecified; K21.9 Gastro-esophageal reflux disease without esophagitis; Z79.82 Long term (current) use of aspirin; Z79.899 Other long term (current) drug therapy; R29.6 Repeated falls; R26.89 Other abnormalities of gait and mobility; G20 Parkinson's disease; K76.0 Fatty (change of) liver, not elsewhere classified